=== PATIENT | female | born 1985 | race Caucasian/White ===

== ENCOUNTER 2017-11-14 03:37 | Emergency (ER) | payer BC, OTHER ==
[2017-11-14 03:59] VITALS: BP 136/83; PULSE 115; TEMP 100.1; BMI 24.7
--- NOTE | 2017-11-14 04:16 | PDOC ---
History of Present Illness - General History Source: Patient Exam Limitations: No Limitations - History of Present Illness Initial Comments: 11/14/17 04:27 The patient is a 32 year old female, with no significant past medical history, who presents to the emergency department with sudden onset of right upper back pain just near her right axilla this morning. She reports the pain is sharp, but not pleuritic, however, exacerbated with extension of her back. She denies any other complaint of pain. The patient denies chest pain, shortness of breath, headache and dizziness. The patient denies fever, chills, nausea, vomit, diarrhea and constipation. The patient denies dysuria, frequency, urgency and hematuria. Allergies: NKDA <Cecy Liriano - Last Filed: 11/14/17 04:27> - General History Source: Patient <OwenBill joyner - Last Filed: 11/14/17 05:27> - General Chief Complaint: Pain Stated Complaint: SIDE PAIN Time Seen by Provider: 11/14/17 04:16 Past History <Cecy Liriano - Last Filed: 11/14/17 04:27> - Past Medical History Asthma: No Cancer: No Cardiac Disorders: No Diabetes: No HTN: No Seizures: No Thyroid Disease: No - Suicide/Smoking/Psychosocial Hx Smoking Status: No Smoking History: Never smoked Have you smoked in the past 12 months: No Number of Cigarettes Smoked Daily: 0 Information on smoking cessation initiated: No Hx Alcohol Use: No Drug/Substance Use Hx: No Hx Substance Use Treatment: No <Bill Leija - Last Filed: 11/14/17 05:27> - Past Medical History Allergies/Adverse Reactions: Allergies Allergy/AdvReac Type Severity Reaction Status Date / Time No Known Allergies Allergy Verified 11/14/17 03:57 Home Medications: Ambulatory Orders Amox-Tr/K Cl [Augmentin 500Mg Tablet] 1 tab PO BID #10 tablet 11/14/17 Ibuprofen [Motrin] 600 mg PO TID #30 tablet 11/14/17 Review of Systems - Review of Systems Able to Perform ROS?: Yes Comments:: 11/14/17 04:27 CONSTITUTIONAL: Absent: fever, chills, diaphoresis, generalized weakness, malaise, loss of appetite HEENT: Absent: rhinorrhea, nasal congestion, throat pain, throat swelling, difficulty swallowing, mouth swelling, ear pain, eye pain, visual Changes CARDIOVASCULAR: Absent: chest pain, syncope, palpitations, irregular heart rate, lightheadedness , peripheral edema RESPIRATORY: Absent: cough, shortness of breath, dyspnea with exertion, orthopnea, wheezing, stridor, hemoptysis GASTROINTESTINAL: Absent: abdominal pain, abdominal distension, nausea, vomiting, diarrhea, constipation, melena, hematochezia GENITOURINARY: Absent: dysuria, frequency, urgency, hesitancy, hematuria, flank pain, genital pain MUSCULOSKELETAL: (+) right upper back and axilla pain. Absent: arthralgia, joint swelling SKIN: Absent: rash, itching, pallor HEMATOLOGIC/IMMUNOLOGIC: Absent: easy bleeding, easy bruising, lymphadenopathy, frequent infections ENDOCRINE: Absent: unexplained weight gain, unexplained weight loss, heat intolerance, cold intolerance NEUROLOGIC: Absent: headache, focal weakness or paresthesias, dizziness, unsteady gait, seizure, mental status changes, bladder or bowel incontinence PSYCHIATRIC: Absent: anxiety, depression, suicidal or homicidal ideation, hallucinations. <Cecy Liriano - Last Filed: 11/14/17 04:27> *Physical Exam - Vital Signs Last Vital Signs Temp Pulse Resp BP Pulse Ox 100.1 F H 115 H 14 136/83 96 11/14/17 03:57 11/14/17 03:57 11/14/17 03:57 11/14/17 03:57 11/14/17 03:57 - Physical Exam Comments: 11/14/17 04:28 GENERAL: Well developed, well nourished. Awake and alert. No acute distress. HEENT: Normocephalic, atraumatic. PERRLA, EOMI. No conjunctival pallor. Sclera are non- icteric. Moist mucous membranes. Oropharynx is clear. NECK: Supple. Full ROM. No JVD. Carotid pulses 2+ and symmetric, without bruits. No thyromegaly. No lymphadenopathy. CARDIOVASCULAR: Regular rate and rhythm. No murmurs, rubs, or gallops. Distal pulses are 2+ and symmetric. PULMONARY: No evidence of respiratory distress. Lungs clear to auscultation bilaterally. No wheezing, rales or rhonchi. ABDOMINAL: Soft. Non-tender. Non-distended. No rebound or guarding. No organomegaly. Normoactive bowel sounds. MUSCULOSKELETAL Normal range of motion at all joints. No bony deformities or tenderness. No CVA tenderness. EXTREMITIES: No cyanosis. No clubbing. No edema. No calf tenderness. SKIN: Warm and dry. Normal capillary refill. No rashes. No jaundice. NEUROLOGICAL: Alert, awake, appropriate. Cranial nerves 2-12 intact. Normoreflexic in the upper and lower extremities. Normal speech. Toes are down-going bilaterally. Gait is normal without ataxia. PSYCHIATRIC: Cooperative. Good eye contact. Appropriate mood and affect. <Cecy Liriano - Last Filed: 11/14/17 04:27> - Vital Signs Last Vital Signs Temp Pulse Resp BP Pulse Ox 100.1 F H 115 H 14 136/83 96 11/14/17 03:57 11/14/17 03:57 11/14/17 03:57 11/14/17 03:57 11/14/17 03:57 <Bill Leija - Last Filed: 11/14/17 05:27> Medical Decision Making - Medical Decision Making 11/14/17 05:27 Dr. Leija: The scribe's documentation has been prepared under my direction and personally reviewed by me in its entirery. I confirm that the note above accurately reflects all work, treatment, procedures, and medical decision making performed by me. <Bill Leija - Last Filed: 11/14/17 05:27> *DC/Admit/Observation/Transfer - Attestations Scribe Attestion: 11/14/17 04:28 Documentation prepared by Cecy Liriano, acting as medical services manager for Bill Leija DO <Cecy Liriano - Last Filed: 11/14/17 04:27> - Discharge Dispostion Admit: No <Bill Leija - Last Filed: 11/14/17 05:27> Diagnosis at time of Disposition: Chest wall pain Fever Qualifiers: Fever type: due to other condition Qualified Code(s): R50.81 - Fever presenting with conditions classified elsewhere - Discharge Dispostion Disposition: HOME Condition at time of disposition: Stable - Patient Instructions Printed Discharge Instructions: DI for Fever (Symptom) -- Adult, DI for Atypical Chest Pain Additional Instructions: Please take medications as directed. Follow up with your doctor after taking antibiotic for re-evaluation.
== END 2017-11-14 05:40 | disposition home or self-care (01) ==
LOC: JER 03:37
DX: R07.89 Other chest pain (principal)
CPT/HCPCS: 71046-TC-FY; 84703; 99283-25